=== PATIENT | male | born 1990 | race Caucasian/White ===

== ENCOUNTER 2020-05-30 13:18 | Outpatient (REF) | payer OTHER, SELFPAY | END 2020-05-30 13:19 | disposition home or self-care (01) | LOC: HO.LAB 13:18 | PROVIDERS: Visit Provider Internal Medicine | DX: Z20.828 Contact with and (suspected) exposure to other viral communicable diseases (principal) | CPT/HCPCS: C9803; U0003 ==

== ENCOUNTER 2020-07-05 11:13 | Outpatient (REF) | payer OTHER, SELFPAY | END 2020-07-05 11:14 | disposition home or self-care (01) | LOC: HO.LAB 11:13 | PROVIDERS: Visit Provider Internal Medicine | DX: Z20.828 Contact with and (suspected) exposure to other viral communicable diseases (principal) | CPT/HCPCS: 36415; C9803; U0003 ==

== ENCOUNTER 2020-10-25 11:59 | Outpatient (REF) | payer OTHER, SELFPAY ==
[2020-10-25 12:19] LABS: COVID-19 Test Negative (Negative)
== END 2020-10-25 12:00 | disposition home or self-care (01) ==
LOC: HO.LAB 11:59
PROVIDERS: Visit Provider Internal Medicine
DX: Z20.822 Contact with and (suspected) exposure to COVID-19 (principal)
CPT/HCPCS: 36415; 87635; C9803

== ENCOUNTER 2020-12-26 11:25 | Outpatient (REF) | payer OTHER, SELFPAY | END 2020-12-26 11:26 | disposition home or self-care (01) | LOC: HO.LAB 11:25 | PROVIDERS: Visit Provider Internal Medicine | DX: Z20.822 Contact with and (suspected) exposure to COVID-19 (principal) | CPT/HCPCS: C9803; U0003; U0005 ==

== ENCOUNTER 2022-02-03 07:35 | Emergency (ER) | payer OTHER, SELFPAY ==
[2022-02-03 07:44] VITALS: BP 123/78; PULSE 88; RESP 18; TEMP 37.4; O2SAT 96
[2022-02-03 08:41] VITALS: BP 121/79; PULSE 92; RESP 18; TEMP 36.8; O2SAT 98; BMI 29.2
[2022-02-03 09:02] LABS: COVID-19 Test Positive (Negative)
--- NOTE | 2022-02-03 10:48 | ED_ITS ---
HPI - General Adult General Chief complaint: Upper Respiratory Symptoms Stated complaint: Covid+/Fever/Body aches Time Seen by Provider: 02/03/22 10:22 History of Present Illness HPI narrative: Patient complains of fever body aches mild runny nose mild cough and fatigue which started today Related Data Previous Rx's Medication Instructions Recorded nirmatrelvir 300 mg (150 mg See Rx Instructions PO .COMPLEX 02/03/22 x2)-ritonavir 100 mg tablet,dose #30 ea pack(EUA) (Paxlovid) Allergies Allergy/AdvReac Type Severity Reaction Status Date / Time No Known Allergies Allergy Verified 02/03/22 08:45 Review of Systems Review of Systems: Negatives are no dizziness no weakness no confusion no h eadache no neck pain no stiff neck no difficulty breathing or swallowing no chest pain no shortness of breath no abdominal pain no nausea vomiting or diarrhea no dysuria no skin rash Yes all other systems are reviewed and are negative PMFSH Past Medical History Source: nursing notes reviewed Social History Social History Advance Directives: No Advance Directives Information Provided: No Physical Exam ED Vital Signs: Vital Signs - 24 hr 02/03/22 07:44 02/03/22 08:41 Temperature 99.4 F 98.2 F Pulse Rate 88 92 Respiratory Rate 18 18 Blood Pressure 123/78 121/79 Pulse Oximetry 96 98 Oxygen Delivery Method Room Air Room Air BMI result Body Mass Index 29.2 General appearance no acute distress The eyes no redness or discharge The pharynx is clear without redness swelling or exudate, membranes moist Neck is supple Chest clear to auscultation bilateral Heart no murmur Abdomen soft nontender Extremities full range of motion x4 Neuro gait and balance are normal and interaction both comprehension and expression are normal Course Course Course Narrative: Patient symptoms were very uncomfortable but not any sign of any dangerous condition now He is given script for Paxlovid and takes no medications so no risk of interaction Medical Decision Making Lab Data Labs: Lab Results 02/03/22 Range/Units 08:47 COVID-19 ([facility]) Positive A (Negative) COVID-19 Clin Com See Note Discharge Plan Discharge Clinical Impression: COVID-19 Patient Disposition: Home, Self-Care Additional Instructions: COVID testing was positive At this point vital signs and physical exam look good, no sign of any dangerous condition now Return any time for difficulty breathing any worse condition or any concerns Prescriptions: New Paxlovid (EUA) 300 mg (150 mg x 2)-100 mg tablets,dose pack See Rx Instructions .ROUTE .COMPLEX Qty: 30 0RF Rx Instructions: take TWO 150 mg tablets of nirmatrelvir with ONE 100 mg tablet of ritonavir twice daily for 5 days Interventions: ED Discharge Assessment Last Done: 02/03/22 12:04 Discharge Date/Time: 02/03/22 12:05
== END 2022-02-03 12:05 | disposition home or self-care (01) ==
PROVIDERS: Emergency Provider Emergency Medicine
DX: U07.1 COVID-19 (principal)
CPT/HCPCS: 87635; 99282; 99283